=== PATIENT | male | born 1965 | race Caucasian/White ===

== ENCOUNTER 2017-12-19 20:55 | Emergency (ER) | payer MEDICAID ==
[2017-12-19 21:50] LABS: URINE BLOOD (Dip) POC 1+ (NEGATIVE); URINE GLUCOSE (Dip) POC Negative (NEGATIVE); URINE KETONES (Dip) POC Negative (NEGATIVE); URINE LEUKOCYTE EST (Dip) POC Negative (NEGATIVE); URINE NITRITE (Dip) POC Negative (NEGATIVE); URINE TOTAL PROTEIN POC 3+ (NEGATIVE)
[2017-12-19 21:50] LABS: URINE PH (Dip) POC 5.5 (5.0-8.5)
[2017-12-19 22:29] LABS: ADD UMIC YES; UR ASCORBIC ACID 20 mg/dL (NEGATIVE); UR BILIRUBIN (Dip) NEGATIVE (NEGATIVE); UR BLOOD (Dip) NEGATIVE (NEGATIVE); UR CALCIUM OXALATE CRYSTAL MANY /HPF (NONE SEEN); UR CLARITY SLIGHTLY CLOUDY (CLEAR); UR COLOR YELLOW (YELLOW); UR GLUCOSE (Dip) NEGATIVE (NEGATIVE); UR KETONES (Dip) NEGATIVE (NEGATIVE); UR LEUKOCYTE ESTERASE (Dip) NEGATIVE Leu/ul (NEGATIVE); UR MUCUS FEW /HPF (NONE SEEN); UR NITRITE (Dip) NEGATIVE (NEGATIVE); UR RBC 2 /HPF (0-5); UR SPECIFIC GRAVITY (Dip) 1.026 (1.003-1.030); UR TOTAL PROTEIN (Dip) 3+ mg/dl (NEGATIVE); UR UROBILINOGEN (Dip) NEGATIVE (NEGATIVE); UR WBC 2 /HPF (0-5)
== END 2017-12-20 00:15 | disposition home or self-care (01) ==
LOC: FTE 12-20 00:15
DX: R30.0 Dysuria (principal)
CPT/HCPCS: 81001; 81003; 99283

== ENCOUNTER 2018-05-11 23:25 | Emergency (ER) | payer MEDICAID ==
[2018-05-12] MEDS: PEG/ELECTROLYTES 4L BTL PO (02:07)
== END 2018-05-12 02:02 | disposition home or self-care (01) ==
LOC: E/R 05-12 02:02
DX: R10.9 Unspecified abdominal pain (principal)
CPT/HCPCS: 74018; 99283-25

== ENCOUNTER 2019-04-19 09:28 | Emergency (ER) | payer MEDICAID ==
[2019-04-19] MEDS: morphine 4 MG/ML VIAL IV (10:52)
[2019-04-19] MEDS: KETOROLAC 30 MG INJ IV (10:52)
[2019-04-19 11:01] LABS: ADD MAN DIFF? NO
[2019-04-19 11:04] LABS: BASOPHILS % 0.8 % (0.0-2.0); EOSINOPHILS # 0.1 10^3/ul (0.0-0.5); EOSINOPHILS % 1.8 % (0.0-7.0); HEMATOCRIT 43.1 % (42.0-52.0); HEMOGLOBIN 14.7 g/dl (14.0-18.0); LYMPHOCYTES # 1.5 10^3/ul (0.8-2.9); LYMPHOCYTES % 31.1 % (15.0-51.0); MEAN CORPUSCULAR HEMOGLOBIN 28.5 pg (29.0-33.0); MEAN CORPUSCULAR HGB CONC 34.1 g/dl (32.0-37.0); MEAN CORPUSCULAR VOLUME 83.7 fl (82.0-101.0); MEAN PLATELET VOLUME 10.4 fl (7.4-10.4); MONOCYTE # 0.4 10^3/ul (0.3-0.9); MONOCYTES % 8.4 % (0.0-11.0); NEUTROPHIL # 2.8 10^3/ul (1.6-7.5); NEUTROPHILS % 57.3 % (39.0-77.0); PLATELET COUNT 227 10^3/UL (140-415); RED BLOOD COUNT 5.15 10^6/ul (4.70-6.10); RED CELL DISTRIBUTION WIDTH 13.5 % (11.5-14.5)
[2019-04-19 11:04] LABS: WHITE BLOOD COUNT 4.9 10^3/ul (4.8-10.8)
[2019-04-19 11:22] LABS: ALANINE AMINOTRANSFERASE 18 IU/L (13-69); ALBUMIN 4.2 g/dl (3.3-4.9); ALKALINE PHOSPHATASE 129 IU/L (42-121); AMYLASE 115 U/L (11-123); ANION GAP 7 (5-13); ASPARTATE AMINO TRANSFERASE 37 IU/L (15-46); BILIRUBIN,INDIRECT 0.5 mg/dl (0-1.1); BILIRUBIN,TOTAL 0.5 mg/dl (0.2-1.3); BLOOD UREA NITROGEN 13 mg/dl (7-20); CARBON DIOXIDE 29 mmol/L (21-31); CHLORIDE 107 mmol/L (97-110); CREATININE 0.94 mg/dl (0.61-1.24); Estimated GFR > 60 mL/min (>60); GLUCOSE 128 mg/dl (70-220); LIPASE 724 U/L (23-300); POTASSIUM 4.3 mmol/L (3.5-5.1); SODIUM 143 mmol/L (135-144)
[2019-04-19 11:31] LABS: PROTIME 13.3 Sec (11.9-14.9)
[2019-04-19 11:33] LABS: TROPONIN-I < 0.012 ng/ml (0.000-0.120)
[2019-04-19 11:41] LABS: ADD UMIC YES; UR ASCORBIC ACID NEGATIVE (NEGATIVE); UR BILIRUBIN (Dip) NEGATIVE (NEGATIVE); UR BLOOD (Dip) NEGATIVE (NEGATIVE); UR CLARITY CLEAR (CLEAR); UR COLOR YELLOW (YELLOW); UR GLUCOSE (Dip) NEGATIVE (NEGATIVE); UR KETONES (Dip) NEGATIVE (NEGATIVE); UR LEUKOCYTE ESTERASE (Dip) NEGATIVE Leu/ul (NEGATIVE); UR NITRITE (Dip) NEGATIVE (NEGATIVE); UR RBC 1 /HPF (0-5); UR SPECIFIC GRAVITY (Dip) 1.018 (1.003-1.030); UR TOTAL PROTEIN (Dip) 2+ mg/dl (NEGATIVE); UR UROBILINOGEN (Dip) NEGATIVE (NEGATIVE); UR WBC 0 /HPF (0-5)
[2019-04-19] MEDS: IOHEXOL 300MG/ML 150 ML BTL (11:52)
[2019-04-19] MEDS: SOD CHLORIDE 0.9% 100 ML (11:52)
[2019-04-19] MEDS: LIDOCAINE/MYLANTA 40 ML BTL PO (14:20)
[2019-04-19] MEDS: BELLADONNA/PHENOBARBITAL TAB PO (14:20)
[2019-04-19] MEDS: ONDANSETRON 4 MG INJ IV (14:20)
[2019-04-19] MEDS: HYDROmorphONE 1 MG/ML SYG IV (14:21)
== END 2019-04-19 15:15 | disposition home or self-care (01) ==
LOC: E/R 09:28
DX: K57.30 Diverticulosis of large intestine without perforation or abscess without bleeding (principal)
CPT/HCPCS: 71045; 74177; 80053; 81001; 82150; 83690; 84484; 85025; 85610; 85730; 87086; 93005; 96374; 96375; 99285-25